=== PATIENT | female | born 1950 | race Two or more races ===

== ENCOUNTER 2021-09-11 07:33 | Day surgery (SDC) | payer OTHER ==
[2021-09-08 18:19] VITALS: BMI 21.5
[2021-09-11] MEDS ORDERED: LIDOCAINE HCL/PF 2% SDV 5ML VIAL ONE (07:41)
[2021-09-11] MEDS ORDERED: PROPOFOL 20 ML ONE ×4 (07:42)
[2021-09-11 08:40] VITALS: PULSE 65; TEMP 97.6
[2021-09-11 08:56] VITALS: BP 125/62
== END 2021-09-11 09:02 | disposition home or self-care (01) ==
LOC: FASU-ENDO 07:33
PROVIDERS: ATTEND Internal Medicine Gastroenterology
PROC: 0DJD8ZZ Inspection of Lower Intestinal Tract, Via Natural or Artificial Opening Endoscopic (ICD-10-PCS; principal; 2021-09-11 08:22)
DX: Z12.11 Encounter for screening for malignant neoplasm of colon (principal)